=== PATIENT | female | born 1985 | race Caucasian/White ===

== ENCOUNTER 2016-12-23 18:20 | Emergency (ER) | payer OTHER ==
[~2016-12-23 18:20] MED LIST: AMOXICILLIN PO; ANAPROX DS PO; BIRTH CONTROL RING; FLEXERIL PO; FLINTSTONE VITAMIN PO; IBUPROFEN; IBUPROFEN PO; KETOPROFEN PO; LORTAB 101 TAB 10/5 PO; LORTAB 7.5-5001 TAB PO; MEDROL PO; MOTRIN100 M1 PO; NATURAL VITA400 UNI2 PO; ORTHO TRI-7 DAYSX 3; PENICILLIN; PERCOCET; PERCOCET5/325 PO; PHENERGAN25 MG PO; STOMACH MED PO; VICODIN PO; YASMIN 28 TABLE1 TAB PO; [UNRECOGNIZED DRUG - OTHER] IM
[2017-01-06] MEDS ORDERED: ALDACTONE (18:58)
[2017-01-06] MEDS ORDERED: PHENERGAN (18:58)
[2017-01-06] MEDS ORDERED: VIT E (18:59)
[2017-01-06] MEDS ORDERED: BUSPAR (18:59)
== END 2016-12-23 18:25 | disposition left against medical advice (07) ==
LOC: CFTX 18:20
DX: Z53.21 Procedure and treatment not carried out due to patient leaving prior to being seen by health care provider (principal)

== ENCOUNTER 2017-01-06 19:09 | Emergency (ER) | payer OTHER ==
[~2017-01-06 19:09] MED LIST changes: +ALDACTONE; +BUSPAR; +PHENERGAN; +VIT E
[2017-01-06 19:51] LABS: BASOPHIL# 0.1 X10e3 (0-0.3); BASOPHIL% 0.7 % (0-2.5); EOSINOPHIL% 0.6 % (0.0-7.0); HEMOGLOBIN 14.2 gm/dL (12.0-16.0); LYMPHOCYTE# 1.9 X10e3 (1.0-3.5); LYMPHOCYTE% 26.5 % (17.0-45.0); MEAN CELL VOLUME 97.2 FL (83-96); MEAN CORPUSCULAR HEMOGLOBIN 33.7 PG (28-34); MEAN CORPUSCULAR HGB CONC 34.7 g/dL (30-36); MEAN PLATELET VOLUME 9.7 FL (6.5-11.5); MONOCYTE# 0.5 X10e3 (0-1.0); MONOCYTE% 7.5 % (3.0-12.0); NEUTROPHIL# 4.7 X10e3 (1.5-7.1); NEUTROPHIL% 64.7 % (40-75); PLATELET COUNT 256 X10e3 (140-420); RED BLOOD COUNT 4.22 X10e (3.90-5.30); RED CELL DISTRIBUTION WIDTH 13.8 % (11.0-15.5); WHITE BLOOD COUNT 7.3 X10e3 (4.0-10.5)
[2017-01-06 19:56] LABS: DIFF IND NO
[2017-01-06 20:01] LABS: ALBUMIN SERUM 4.4 g/dL (3.5-5.0); BILIRUBIN, DIRECT 0.1 mg/dL (0.0-0.2); BILIRUBIN,INDIRECT 0.3 mg/dL (0.0-0.9); BILIRUBIN,TOTAL 0.4 mg/dL (0.2-2.0); BUN/CREATININE RATIO 8.75; CALCIUM SERUM 9.2 mg/dL (8.4-10.2); CREATININE SERUM 0.8 mg/dL (0.6-1.4); GLOM FILT RATE Estimated 98.3 mL/min (>60); POTASSIUM 3.3 mmol/L (3.5-5.1); PROTEIN TOTAL SERUM 7.9 g/dL (6.0-8.3)
[2017-01-06 20:06] LABS: URINE SOURCE CLEAN CATCH
[2017-01-06 20:08] LABS: URINE APPEARANCE CLEAR; URINE BILIRUBIN NEG (NEG); URINE BLOOD 3+ (NEG); URINE COLOR YELLOW; URINE GLUCOSE NEG (NORM); URINE KETONE NEG (NEG); URINE LEUKOCYTE ESTERASE NEG (NEG); URINE NITRATE NEG (NEG); URINE PROTEIN NEG (NEG); URINE UROBILINOGEN 0.2 MG/DL (NORM)
[2017-01-06 20:14] LABS: CULTURE INDICATED? NO; MICRO INDICATED? YES; URINE BACTERIA NEG (NEG); URINE RBC 100-200 /[HPF] (0-2)
[2017-01-06 20:15] LABS: URINE SQUAMOUS EPITHELIAL CELL OCCAS /[HPF]
[2017-01-09 15:30] LABS: CHLAMYDIA TRACH Not Detected (Not Detected); N GONOR Not Detected (Not Detected)
== END 2017-01-06 21:29 | disposition home or self-care (01) ==
LOC: SED 19:09
PROVIDERS: Physician Assistant
DX: N93.8 Other specified abnormal uterine and vaginal bleeding (principal); F17.210 Nicotine dependence, cigarettes, uncomplicated; Z90.49 Acquired absence of other specified parts of digestive tract; Z88.5 Allergy status to narcotic agent; Z88.2 Allergy status to sulfonamides; Z88.8 Allergy status to other drugs, medicaments and biological substances
CPT/HCPCS: 36415; 80048; 80076; 81003; 84703; 85025; 87210; 87491; 87591; 87808; 87905; 99284